=== PATIENT | female | born 2000 | race Caucasian/White ===

== ENCOUNTER 2025-02-09 10:08 | Emergency (ER) | payer BC, SELFPAY ==
[2025-02-09 10:17] VITALS: BP 144/83
[2025-02-09 10:33] VITALS: BP 134/89
[2025-02-09 10:36] VITALS: BMI 25.8
[2025-02-09 10:49] VITALS: BP 134/89
--- NOTE | 2025-02-09 10:58 | ED.GENMED ---
History of Present Illness
General
Chief Complaint: Chest Pain
Source: patient
Exam Limitations: none
Time Seen by Provider: 02/09/25 10:57
History of Present Illness
History of Present Illness:
24yoF with a history of depression presenting with her mother for evaluation of multiple complaints. Patient has had irregular heavy menstrual periods for the past 6 months. Her period 2 months ago lasted for 3 weeks. Last menstrual period was about
a month ago. She has been feeling very fatigued for the past 3 weeks. She is also experiencing cold hands/feet, intermittent palpitations, and shortness of breath. Mother states she appears very pale. She is mainly worried that she is anemia. She
admits to intermittent pelvic pain. She denies any pain currently. No vaginal discharge, UTI symptoms, fevers. Patient has never seen a service planner before.
Past History
Past History
ED Past Medical History: Other (History of headaches with visual complaints) and Other (Scoliosis)
ED Past Surgical History: None
Patient has exhibited threatening behavior?: No
Social History
Tobacco: Non-smoker
Alcohol: None
Drug: None
Personal: Single
Living: with family
Employment: Employed
Phy Exam
General Physical Exam
General Presentation: well appearing and no apparent distress
General age: appears stated age
General Skin: warm and dry
General Habitus: normal
General Mental: alert
ENT Exam
ENT Exam: normocephalic
Cardiovascular Exam
Cardiovascular Exam: regular rate/rhythm and no murmur
Pulmonary Exam
Pulmonary Exam: lungs clear, no respiratory distress, no rales, no crackles, no rhonchi and no wheezing
Gastrointestinal Exam
Gastrointestinal Exam: non tender, soft and non distended
Neurological Exam
Neurological Exam: alert
Gigi Coma Scale
Eye Opening: Spontaneous
Verbal Response: Oriented
Motor Response: Obeys Commands
GCS Total Score: 15
Skin Exam
Skin Exam: normal color and warm/dry
Psychiatric Exam
Psychiatric Exam: normal mood/affect
Scores
Heart Score for Chest Pain Patients
STEMI patient?: No
History: Slightly or Non-Suspicious
ECG: Normal
Age: </= 45 years
Risk Factors: No Risk Factors
Troponin: </= Normal Limit
Heart Score for Chest Pain Patients: 0
Heart Score Risk: 2.5% MACE over next 6 weeks
Course
Orders/Labs/Results
Orders:
Orders
02/09/25 10:09
EKG [Electrocardiogram (*1)] Urgent
Reason for Study: Chest Pain
EKG- Treatment ONCE
02/09/25 11:08
Test Result ONCE
Pelvis & Transvaginal US [US Pelvis W Transvag Combined] Urgent
Comment:
Reason For Exam: pelvic pain, heavy periods
02/09/25 11:21
Complete Blood Count/With Diff Urgent
Comprehensive Metabolic Panel Urgent
HCG, Serum Qualitative Screen Urgent
TSH Reflex To Free T4 Urgent
Troponin I Urgent
Abnormal Lab Results
02/09/25
11:21
Chloride 110 H mmol/L
(98-107)
Alkaline Phosphatase 37 L U/L
(38-126)
Total Protein 6.0 L g/dl
(6.3-8.2)
02/09/25 11:21
02/09/25 11:21
Vital Signs
Initial and Last Documented VS:
Initial Vital Signs
Temp Pulse Resp BP Pulse Ox
98.5 F 77 16 144/83 100
02/09/25 10:17 02/09/25 10:17 02/09/25 10:17 02/09/25 10:17 02/09/25 10:17
Last Documented Vital Signs
Temp Pulse Resp BP Pulse Ox
97.6 F 82 20 127/82 99
02/09/25 14:19 02/09/25 14:19 02/09/25 14:19 02/09/25 14:19 02/09/25 14:19
MDM/Problems Addressed
Differential Diagnosis Includes:
24yoF here with multiple complaints including fatigue, cold intolerance, heavy periods, and SOB x 3 weeks. Worried she is anemia. Not currently having any vaginal bleeding. VSS. She is well appearing in no distress. Differential diagnosis includes
but is not limited to: anemia, thyroid dysfunction, depression, doubt cardiac pathology given age
Initial ED plan: EKG obtained in triage shows NSR without ischemic changes or ectopy. Check cardiac labs, TSH, HCG, and pelvic ultrasound.
*EKG
Interpreted by ED Provider?: Yes
EKG Intrepretation Date: 02/09/25
Heart Rate: 65
Rate: normal
Rhythm: sinus
Warren: normal axis
Interval: normal interval
QRS Pattern: normal QRS
Ischemia: no ischemia
*Critical Care Note
Total Time (30-74mins, 75-104mins- exclusive of procedures): Not Applicable
Update Note
Update Note:
Labs overall unremarkable including normal hemoglobin, TSH, and troponin. hCG negative. Pelvic ultrasound reveals a 1.5 x 1.1 x 1.2 cm solid appearing lesion of the R ovary which may represent involuting follicle, hemorrhagic cyst, or
endometrioma, malignancy less likely. Patient provided with a copy of the radiology report and was advised to have a follow-up ultrasound to ensure resolution. No indication for hospitalization. She was advised to follow-up with gynecology. She
also has a PCP appointment scheduled for next month. She was discharged in stable condition.
ED Attending Note
-
Portions of this chart may have been created with voice recognition software.� Occasional wrong word or��sound alike� substitutions may have occurred due to the inherent limitations of voice recognition software.
Discharge Plan
Departure
Patient Disposition: Home (Routine Discharge)
Date of Disposition: 02/09/25
Time of Disposition: 13:40
Patient with high blood pressure during this ER visit?: No
Discharge Problem:
Fatigue, Irregular menses
Instructions: Fatigue (DC)
Prescriptions:
No Action
No Current Medications
0
Referrals:
Laurel Frances, DO [Active] -
NONE,* [Family Provider] -
Activity Restrictions/Additional Instructions:
Please follow-up with gynecology and a family doctor. You will need a repeat ultrasound to monitor the abnormal lesion on the right ovary seen on today's ultrasound.
Return to the ER with any new or worsening symptoms.
Interventions
Interventions:
*Risk Screen - Suicide Last Done: 02/09/25 10:17
*General Assessment Last Done: 02/09/25 10:49
*Neglect/Abuse Screening Last Done: 02/09/25 10:17
*ED- Fall Risk Assessment Last Done: 02/09/25 10:49
*ED COVID-19 Vaccine History Last Done: 02/09/25 10:49
*Nursing Disposition Last Done: 02/09/25 14:19
ED- Cardiac Assessment Last Done: 02/09/25 10:49
Discharge Date and Time
Discharge Date/Time: 02/09/25 14:20
Print Language: [email or web address]
[2025-02-09 11:00] VITALS: BP 110/67
[2025-02-09 11:32] LABS: % Basophils 0.9 % (0-2); % Eosinophils 0.8 % (0-6); % Immature Granulocytes 0.4 % (0-0.5); % Lymphocytes 26.7 % (20.5-51.1); % Monocytes 6.1 % (1.7-9.3); % Neutrophils 65.1 % (42.2-75.2); Absolute Basophils 0.1 10^3/uL (0-0.2); Absolute Lymphocytes 1.4 10^3/uL (1.2-3.4); Absolute Monocytes 0.3 10^3/uL (0.1-0.6); Absolute Neutrophils 3.4 10^3/uL (1.4-6.5); Hematocrit 37.3 % (37.0-47.0); Hemoglobin 12.6 g/dL (12.0-16.0); Mean Corp Hgb Conc. 33.8 g/dL (33.0-37.0); Mean Corpuscular Hgb 29.6 pg (27.0-31.0); Mean Corpuscular Volume 87.6 fL (81.0-99.0); Mean Platelet Volume 9.9 fL (7.4-10.4); Nucleated Red Blood Cells % 0 %; Platelet Count 304 10^3/uL (130-400); Red Blood Cell Count 4.26 10^6/uL (4.20-5.40); Red Cell Dist. Width 12.1 % (11.5-14.5); White Blood Cell Count 5.3 10^3/uL (4.8-10.8)
[2025-02-09 11:50] LABS: ALT (SGPT) 13 U/L (0-35); AST (SGOT) 16 U/L (14-36); Albumin 3.8 g/dl (3.5-5.0); Alkaline Phosphatase 37 U/L (38-126); Blood Urea Nitrogen 10 mg/dl (7-17); Calcium 9.3 mg/dl (8.4-10.2); Carbon Dioxide 26 mmol/L (22-30); Chloride 110 mmol/L (98-107); Estimated Creatinine Clearance 123 ml/min; Glucose 95 mg/dl (70-99); Potassium 4.3 mmol/L (3.5-5.1); Sodium 140 mmol/L (135-145); Total Bilirubin 0.2 mg/dl (0.2-1.3); eGFR > 60.00
[2025-02-09 11:59] LABS: HCG, Serum Qualitative Screen Negative
[2025-02-09 12:02] LABS: Troponin I < 0.012 ng/ml
[2025-02-09 12:19] LABS: TSH Reflex To Free T4 2.21 uIU/ml (0.47-4.68)
[2025-02-09 14:19] VITALS: BP 127/82
== END 2025-02-09 14:20 | disposition home or self-care (01) ==
LOC: EMR 10:08
PROVIDERS: Physician Assistant; EMERGENCY PHYSICIAN Emergency Medicine
DX: N92.1 Excessive and frequent menstruation with irregular cycle (principal); R53.83 Other fatigue; R00.2 Palpitations; R06.02 Shortness of breath; R10.2 Pelvic and perineal pain
CPT/HCPCS: 99284; 76830; 76856; 80053; 84443; 84484; 84703; 85025; 93005